=== PATIENT | male | born 1940 | race Caucasian/White ===

== ENCOUNTER 2019-03-06 16:07 | Outpatient (REF) | payer MEDICARE, SELFPAY ==
[2019-03-06 22:06] LABS: Anion Gap 10.1 mmol/L (3-11); BUN 63 mg/dL (7-18); CO2 24.9 mmol/L (21.0-32.0); Chloride 105 mmol/L (98-107); Estimated GFR 32.39 (mL/min/1.73m2); Glucose 139 mg/dL (70-100); Magnesium 2.4 mg/dL (1.8-2.4); Potassium 4.3 mmol/L (3.5-5.1); Sodium 140 mmol/L (136-145); TSH (W/Ref FT4) 6.12 uIU/mL (0.36-3.74)
[2019-03-06 22:35] LABS: FREE T4 0.73 ng/dL (0.76-1.46)
[2019-03-08 05:18] LABS: Vitamin D 25 Total 77.6 ng/ml (30-100)
== END 2019-03-06 16:27 ==
LOC: NCHCN 16:07
PROVIDERS: Visit Provider Family Medicine
DX: N18.3 Chronic kidney disease, stage 3 (moderate) (principal); R25.2 Cramp and spasm
CPT/HCPCS: 80048; 82306; 83735; 84439; 84443

== ENCOUNTER 2019-06-07 12:40 | Outpatient (REF) | payer MEDICARE, SELFPAY ==
[2019-06-07 21:27] LABS: Anion Gap 8.5 mmol/L (3-11); BUN 61 mg/dL (7-18); CO2 26.5 mmol/L (21.0-32.0); CREATININE 1.81 mg/dL (0.70-1.30); Calcium 9.1 mg/dL (8.5-10.1); Chloride 104 mmol/L (98-107); Estimated GFR 36.35 (mL/min/1.73m2); Glucose 119 mg/dL (74-106); Potassium 4.7 mmol/L (3.5-5.1); Sodium 139 mmol/L (136-145); TSH (W/Ref FT4) 7.96 uIU/mL (0.36-3.74)
[2019-06-07 21:38] LABS: COMMENT (LAB VIEW ONLY) 37.26 mg/dL; Microalb ug/mg Crea 48.3 ug/mg Cr
[2019-06-07 22:02] LABS: FREE T4 0.82 ng/dL (0.76-1.46)
== END 2019-06-07 13:00 ==
LOC: NCHCN 12:40
PROVIDERS: Visit Provider Family Medicine
DX: E03.9 Hypothyroidism, unspecified (principal); N18.3 Chronic kidney disease, stage 3 (moderate)
CPT/HCPCS: 80048; 82043; 82570; 84439; 84443

== ENCOUNTER 2019-09-06 19:50 | Outpatient (REF) | payer MEDICARE, SELFPAY ==
[2019-09-06 20:23] LABS: Hemoglobin A1C 7.3 % (3.8-5.6)
[2019-09-06 20:24] LABS: BUN 51 mg/dL (7-18); CREATININE 2.05 mg/dL (0.70-1.30); Calcium 9.1 mg/dL (8.5-10.1); Chloride 103 mmol/L (98-107); Estimated GFR 31.48 (mL/min/1.73m2); Glucose 198 mg/dL (74-106); Potassium 4.9 mmol/L (3.5-5.1); Sodium 135 mmol/L (136-145); TSH 6.73 uIU/mL (0.36-3.74)
== END 2019-09-06 20:10 ==
LOC: NCHCN 19:50
PROVIDERS: PCP Family Medicine; Visit Provider Family Medicine
DX: E11.9 Type 2 diabetes mellitus without complications (principal); N18.3 Chronic kidney disease, stage 3 (moderate)
CPT/HCPCS: 80048; 83036; 84443

== ENCOUNTER 2020-03-11 13:51 | Outpatient (REF) | payer MEDICARE, SELFPAY ==
[2020-03-11 21:14] LABS: Anion Gap 7.3 mmol/L (3-11); BUN 52 mg/dL (7-18); CO2 26.7 mmol/L (21.0-32.0); CREATININE 1.88 mg/dL (0.70-1.30); Chloride 103 mmol/L (98-107); Glucose 228 mg/dL (74-106); Potassium 4.8 mmol/L (3.5-5.1); Sodium 137 mmol/L (136-145); TSH (W/Ref FT4) 7.53 uIU/mL (0.36-3.74)
[2020-03-11 21:31] LABS: FREE T4 0.85 ng/dL (0.76-1.46)
== END 2020-03-11 14:11 ==
LOC: NCHCN 13:51
PROVIDERS: PCP Family Medicine; Visit Provider Family Medicine
DX: E03.9 Hypothyroidism, unspecified (principal); N18.30 Chronic kidney disease, stage 3 unspecified
CPT/HCPCS: 80048; 84439; 84443

== ENCOUNTER 2020-09-25 11:38 | Outpatient (REF) | payer MEDICARE, SELFPAY ==
[2020-09-25 14:39] LABS: Microalb ug/mg Crea 96.5 ug/mg Cr
== END 2020-09-25 11:39 | disposition home or self-care (01) ==
LOC: NCHCN 11:38
PROVIDERS: PCP Family Medicine; Visit Provider Family Medicine
DX: E11.9 Type 2 diabetes mellitus without complications (principal)
CPT/HCPCS: 82043; 82570

== ENCOUNTER 2021-12-01 21:00 | Outpatient (REF) | payer MEDICARE, OTHER, SELFPAY ==
[2021-12-01 16:03] LABS: BUN 46 mg/dL (7-18); CREATININE 1.9 mg/dL (0.70-1.30); Calcium 8.9 mg/dL (8.5-10.1); Chloride 101 mmol/L (98-107); Estimated GFR 34.19 (mL/min/1.73m2); Glucose 210 mg/dL (74-106); Potassium 4.6 mmol/L (3.5-5.1); Sodium 136 mmol/L (136-145)
== END 2021-12-01 21:01 | disposition home or self-care (01) ==
LOC: NCHCN 21:00
PROVIDERS: PCP Family Medicine; Visit Provider Family Medicine
DX: E11.9 Type 2 diabetes mellitus without complications (principal); N18.9 Chronic kidney disease, unspecified
CPT/HCPCS: 80048

== ENCOUNTER 2022-03-02 18:07 | Outpatient (REF) | payer MEDICARE, OTHER, SELFPAY ==
[2022-03-02 16:43] LABS: COMMENT (LAB VIEW ONLY) 53.51 mg/dL; Microalb ug/mg Crea 55.9 ug/mg Cr
== END 2022-03-02 18:08 | disposition home or self-care (01) ==
LOC: NCHCN 18:07
PROVIDERS: PCP Family Medicine; Visit Provider Family Medicine
DX: E11.9 Type 2 diabetes mellitus without complications (principal)
CPT/HCPCS: 82043; 82570

== ENCOUNTER 2022-03-26 12:54 | Outpatient (REF) | payer MEDICARE, OTHER, SELFPAY ==
[2022-03-28 01:44] LABS: COVID-19 RT-PCR UVMMC Result Negative (Negative)
== END 2022-03-26 12:55 | disposition home or self-care (01) ==
LOC: NCHCN 12:54
PROVIDERS: PCP Family Medicine; Visit Provider Family Medicine
DX: Z20.822 Contact with and (suspected) exposure to COVID-19 (principal)
CPT/HCPCS: U0003

== ENCOUNTER 2023-01-18 20:40 | Outpatient (REF) | payer MEDICARE, SELFPAY ==
[2023-01-18 16:11] LABS: Abs Immature Grans 0.02 10^3/uL (0.0-0.06); Absolute Basophil Count 0.08 10^3/uL (0.0-0.2); Absolute Eosinophil Count 0.28 10^3/uL (0.0-0.7); Absolute Lymphocyte Count 1.73 10^3/uL (1.2-3.4); Absolute Monocyte Count 0.51 10^3/uL (0.1-0.8); Absolute Neutrophil Count 5.09 10^3/uL (1.2-6.7); Eosinophils % 3.6; HCT 45.2 % (40.0-50.0); HGB 14.8 g/dL (13.5-17.5); Immature Grans % 0.3; Lymphocytes % 22.4; MCH 31.5 pg (27.0-33.0); MCHC 32.7 % (32.0-36.0); MCV 96 fL (80-95); MPV 11.8 fL (8.0-11.0); Monocytes % 6.6; Neutrophils % 66.1; Platelet Count 153 10^3/uL (130-400); RDW 15.9 % (11.8-14.1); RDW-SD 56.8 fL; WBC 7.71 10^3/uL (4.4-10.8)
[2023-01-18 16:57] LABS: Vitamin D 25 Total 69.5 ng/mL (30-100)
[2023-01-18 16:58] LABS: ALT 29 U/L (16-63); AST 25 U/L (15-37); Albumin 3.6 g/dL (3.4-5.0); Alkaline Phosphatase 92 U/L (46-116); Anion Gap 6.8 mmol/L (3-11); BUN 55 mg/dL (7-18); Bilirubin, Total 0.4 mg/dL (0.2-1.0); CO2 26.2 mmol/L (21.0-32.0); CREATININE 1.9 mg/dL (0.70-1.30); Calcium 9.5 mg/dL (8.5-10.1); Chloride 103 mmol/L (98-107); Estimated GFR 34.79 (mL/min/1.73m2); Glucose 184 mg/dL (74-106); Potassium 4.8 mmol/L (3.5-5.1); Sodium 136 mmol/L (136-145); T4 5.9 ug/dL (4.7-13.3); TSH (W/Ref FT4) 7.45 uIU/mL (0.36-3.74); Total Protein 7.6 g/dL (6.4-8.2); Vitamin B12 1194 pg/mL (193-986)
[2023-01-18 17:25] LABS: Folate > 20.0 ng/mL (8.6-20.0)
[2023-01-18 17:43] LABS: FREE T4 0.84 ng/dL (0.76-1.46)
== END 2023-01-18 20:41 | disposition home or self-care (01) ==
LOC: NCHCN 20:40
PROVIDERS: PCP Family Medicine; Visit Provider Family Medicine
DX: I10 Essential (primary) hypertension (principal); E11.9 Type 2 diabetes mellitus without complications; N18.30 Chronic kidney disease, stage 3 unspecified; I50.9 Heart failure, unspecified; R20.2 Paresthesia of skin
CPT/HCPCS: 80053; 82306; 82607; 82746; 84436; 84439; 84443; 85025

== ENCOUNTER 2023-02-03 16:56 | Outpatient (REF) | payer MEDICARE, SELFPAY ==
[2023-02-03 22:00] LABS: COMMENT (LAB VIEW ONLY) 33.96 mg/dL; Microalb ug/mg Crea 74.5 ug/mg Cr
== END 2023-02-03 16:57 | disposition home or self-care (01) ==
LOC: NCHCN 16:56
PROVIDERS: PCP Family Medicine; Visit Provider Family Medicine
DX: E11.9 Type 2 diabetes mellitus without complications (principal)
CPT/HCPCS: 82043; 82570

== ENCOUNTER 2023-03-01 18:25 | Outpatient (REF) | payer MEDICARE, SELFPAY | END 2023-03-01 18:26 | disposition home or self-care (01) | LOC: NCHCN 18:25 | PROVIDERS: PCP Family Medicine; Visit Provider Physician Assistant | DX: L03.115 Cellulitis of right lower limb (principal) | CPT/HCPCS: 87070; 87205 ==

== ENCOUNTER 2023-09-09 14:07 | Outpatient (REF) | payer MEDICARE, SELFPAY ==
[2023-09-09 14:17] LABS: HCT 44.5 % (40.0-50.0); HGB 14.7 g/dL (13.5-17.5); MCH 31.7 pg (27.0-33.0); MCV 96 fL (80-95); MPV 10.8 fL (8.0-11.0); Platelet Count 171 10^3/uL (130-400); RBC 4.63 10^6/uL (4.36-5.78); RDW 15.9 % (11.8-14.1); RDW-SD 56.4 fL; WBC 7.74 10^3/uL (4.4-10.8)
[2023-09-09 14:31] LABS: Hemoglobin A1C 7.3 % (<5.7)
[2023-09-09 14:41] LABS: ALT 31 U/L (16-63); AST 28 U/L (15-37); Albumin 3.9 g/dL (3.4-5.0); Alkaline Phosphatase 92 U/L (46-116); Anion Gap 8.8 mmol/L (3-11); BUN 69 mg/dL (7-18); Bilirubin, Total 0.7 mg/dL (0.2-1.0); CO2 27.2 mmol/L (21.0-32.0); CREATININE 2.5 mg/dL (0.70-1.30); Calcium 9.3 mg/dL (8.5-10.1); Chloride 102 mmol/L (98-107); Estimated GFR 24.87 (mL/min/1.73m2); Glucose 162 mg/dL (74-106); Potassium 4.5 mmol/L (3.5-5.1); Sodium 138 mmol/L (136-145); Total Protein 7.6 g/dL (6.4-8.2)
== END 2023-09-09 14:08 | disposition home or self-care (01) ==
LOC: NCHCN 14:07
PROVIDERS: PCP Family Medicine; Visit Provider Registered Nurse
DX: Z86.73 Personal history of transient ischemic attack (TIA), and cerebral infarction without residual deficits (principal)
CPT/HCPCS: 80053; 85027; 83036; 84439; 84443

== ENCOUNTER 2023-09-12 11:08 | Outpatient (REF) | payer MEDICARE, SELFPAY ==
[2023-09-12 21:47] LABS: Anion Gap 11.6 mmol/L (3-11); BUN 63 mg/dL (7-18); CO2 23.4 mmol/L (21.0-32.0); CREATININE 2.2 mg/dL (0.70-1.30); Calcium 9.8 mg/dL (8.5-10.1); Chloride 105 mmol/L (98-107); Estimated GFR 28.99 (mL/min/1.73m2); Glucose 205 mg/dL (74-106); Potassium 4.5 mmol/L (3.5-5.1); Sodium 140 mmol/L (136-145)
== END 2023-09-12 11:09 | disposition home or self-care (01) ==
LOC: NCHCN 11:08
PROVIDERS: PCP Family Medicine; Visit Provider Registered Nurse
DX: N18.30 Chronic kidney disease, stage 3 unspecified (principal)
CPT/HCPCS: 80048

== ENCOUNTER 2023-09-20 10:45 | Outpatient (REF) | payer MEDICARE, SELFPAY ==
[2023-09-20 14:22] LABS: Anion Gap 4.6 mmol/L (3-11); BUN 36 mg/dL (7-18); CO2 28.4 mmol/L (21.0-32.0); Chloride 106 mmol/L (98-107); Estimated GFR 32.51 (mL/min/1.73m2); Glucose 145 mg/dL (74-106); NT-proBNP 1034 pg/mL (<300); Potassium 4.9 mmol/L (3.5-5.1); Sodium 139 mmol/L (136-145)
== END 2023-09-20 10:46 | disposition home or self-care (01) ==
LOC: NCHCN 10:45
PROVIDERS: PCP Family Medicine; Visit Provider Family Medicine
DX: I50.9 Heart failure, unspecified (principal); N18.30 Chronic kidney disease, stage 3 unspecified
CPT/HCPCS: 80048; 83880

== ENCOUNTER 2023-11-01 14:14 | Outpatient (REF) | payer MEDICARE, SELFPAY ==
[2023-11-01 21:39] LABS: Anion Gap 7.7 mmol/L (3-11); BUN 46 mg/dL (7-18); CO2 26.3 mmol/L (21.0-32.0); Calcium 9.2 mg/dL (8.5-10.1); Chloride 105 mmol/L (98-107); Estimated GFR 32.51 (mL/min/1.73m2); Glucose 159 mg/dL (74-106); Potassium 4.7 mmol/L (3.5-5.1); Sodium 139 mmol/L (136-145)
== END 2023-11-01 14:15 | disposition home or self-care (01) ==
LOC: NCHCN 14:14
PROVIDERS: PCP Family Medicine; Visit Provider Family Medicine
DX: N18.30 Chronic kidney disease, stage 3 unspecified (principal)
CPT/HCPCS: 80048

== ENCOUNTER 2024-01-03 20:51 | Outpatient (REF) | payer MEDICARE, SELFPAY ==
[2024-01-03 21:46] LABS: Anion Gap 6.8 mmol/L (3-11); BUN 42 mg/dL (7-18); CO2 27.2 mmol/L (21.0-32.0); Calcium 9.4 mg/dL (8.5-10.1); Chloride 102 mmol/L (98-107); Estimated GFR 32.51 (mL/min/1.73m2); Glucose 220 mg/dL (74-106); Potassium 4.6 mmol/L (3.5-5.1); Sodium 136 mmol/L (136-145); TSH (W/Ref FT4) 7.76 uIU/mL (0.36-3.74)
[2024-01-03 21:48] LABS: Hemoglobin A1C 7.3 % (<5.7)
[2024-01-03 22:10] LABS: FREE T4 0.82 ng/dL (0.76-1.46)
== END 2024-01-03 20:52 | disposition home or self-care (01) ==
LOC: NCHCN 20:51
PROVIDERS: PCP Family Medicine; Visit Provider Family Medicine
DX: E03.9 Hypothyroidism, unspecified (principal); E13.42 Other specified diabetes mellitus with diabetic polyneuropathy; N18.30 Chronic kidney disease, stage 3 unspecified
CPT/HCPCS: 80048; 83036; 84439; 84443

== ENCOUNTER 2024-04-05 16:37 | Outpatient (REF) | payer MEDICARE, SELFPAY ==
[2024-04-05 21:52] LABS: Hemoglobin A1C 7.1 % (<5.7)
[2024-04-05 22:01] LABS: Anion Gap 8.8 mmol/L (3-11); BUN 54 mg/dL (7-18); CO2 26.2 mmol/L (21.0-32.0); CREATININE 2.4 mg/dL (0.70-1.30); Chloride 105 mmol/L (98-107); Estimated GFR 25.96 (mL/min/1.73m2); Glucose 138 mg/dL (74-106); NT-proBNP 2239 pg/mL (<300); Potassium 4.7 mmol/L (3.5-5.1); Sodium 140 mmol/L (136-145); TSH (W/Ref FT4) 8.46 uIU/mL (0.36-3.74)
[2024-04-05 22:17] LABS: COMMENT (LAB VIEW ONLY) 57.16 mg/dL; Microalb ug/mg Crea 37.6 ug/mg Cr
[2024-04-05 22:18] LABS: FREE T4 0.88 ng/dL (0.76-1.46)
== END 2024-04-05 16:38 | disposition home or self-care (01) ==
LOC: NCHCN 16:37
PROVIDERS: PCP Family Medicine; Visit Provider Family Medicine
DX: E11.9 Type 2 diabetes mellitus without complications (principal); I10 Essential (primary) hypertension; I50.9 Heart failure, unspecified
CPT/HCPCS: 80048; 82043; 82570; 83036; 83880; 84439; 84443

== ENCOUNTER 2024-07-16 15:46 | Outpatient (REF) | payer MEDICARE, SELFPAY ==
[2024-07-16 22:39] LABS: Anion Gap 6.3 mmol/L (3-11); BUN 71 mg/dL (7-18); CO2 28.7 mmol/L (21.0-32.0); CREATININE 2.5 mg/dL (0.70-1.30); Calcium 9.3 mg/dL (8.5-10.1); Chloride 102 mmol/L (98-107); Estimated GFR 24.72 (mL/min/1.73m2); Glucose 138 mg/dL (74-106); NT-proBNP 1106 pg/mL (<300); Potassium 5.1 mmol/L (3.5-5.1); Sodium 137 mmol/L (136-145); TSH (W/Ref FT4) 9.36 uIU/mL (0.36-3.74)
[2024-07-17 18:21] LABS: T4, Free 1.2 ng/dL (0.8-2.2)
== END 2024-07-16 15:47 | disposition home or self-care (01) ==
LOC: NCHCN 15:46
PROVIDERS: PCP Family Medicine; Visit Provider Family Medicine
DX: E03.9 Hypothyroidism, unspecified (principal); I50.9 Heart failure, unspecified
CPT/HCPCS: 80048; 83880; 84439; 84443

== ENCOUNTER 2024-09-06 15:03 | Outpatient (REF) | payer MEDICARE, SELFPAY ==
[2024-09-06 16:08] LABS: Abs Immature Grans 0.02 10^3/uL (0.0-0.06); Absolute Eosinophil Count 0.31 10^3/uL (0.0-0.7); Absolute Lymphocyte Count 2.17 10^3/uL (1.2-3.4); Absolute Monocyte Count 0.61 10^3/uL (0.1-0.8); Absolute Neutrophil Count 4.63 10^3/uL (1.2-6.7); Basophils % 1.3 %; HCT 38.3 % (40.0-50.0); HGB 12.6 g/dL (13.5-17.5); Immature Grans % 0.3 %; Lymphocytes % 27.7 %; MCH 32.1 pg (27.0-33.0); MCHC 32.9 % (32.0-36.0); MCV 98 fL (80-95); MPV 11.7 fL (8.0-11.0); Monocytes % 7.8 %; Neutrophils % 58.9 %; Platelet Count 178 10^3/uL (130-400); RBC 3.93 10^6/uL (4.36-5.78); RDW 14.8 % (11.8-14.1); RDW-SD 53.5 fL; WBC 7.84 10^3/uL (4.4-10.8)
[2024-09-06 16:48] LABS: Iron 72 ug/dL (65-175); Total Iron Binding Capacity 276 ug/dL (250-450); Transferrin Sat 26 % (20-55)
[2024-09-06 16:52] LABS: ALT 25 U/L (16-63); AST 23 U/L (15-37); Albumin 3.7 g/dL (3.4-5.0); Alkaline Phosphatase 95 U/L (46-116); Anion Gap 5.7 mmol/L (3-11); BUN 69 mg/dL (7-18); Bilirubin, Total 0.6 mg/dL (0.2-1.0); CO2 29.3 mmol/L (21.0-32.0); CREATININE 2.5 mg/dL (0.70-1.30); Calcium 9.5 mg/dL (8.5-10.1); Chloride 102 mmol/L (98-107); Estimated GFR 24.72 (mL/min/1.73m2); Ferritin 145 ng/mL (26-388); Glucose 168 mg/dL (74-106); Potassium 4.6 mmol/L (3.5-5.1); Sodium 137 mmol/L (136-145); TSH (W/Ref FT4) 8.53 uIU/mL (0.36-3.74); Total Protein 7.3 g/dL (6.4-8.2)
[2024-09-06 17:31] LABS: FREE T4 0.94 ng/dL (0.76-1.46)
== END 2024-09-06 15:04 | disposition home or self-care (01) ==
LOC: NCHCN 15:03
PROVIDERS: PCP Family Medicine; Visit Provider Family Medicine
DX: N18.30 Chronic kidney disease, stage 3 unspecified (principal); E03.9 Hypothyroidism, unspecified; I95.89 Other hypotension
CPT/HCPCS: 80053; 82728; 83540; 83550; 84439; 84443; 85025

== ENCOUNTER 2024-11-06 20:39 | Outpatient (REF) | payer MEDICARE, SELFPAY ==
[2024-11-07 01:31] LABS: TSH 8.67 uIU/mL (0.36-3.74)
== END 2024-11-06 20:40 | disposition home or self-care (01) ==
LOC: NCHCN 20:39
PROVIDERS: PCP Family Medicine; Visit Provider Family Medicine
DX: E03.9 Hypothyroidism, unspecified (principal)
CPT/HCPCS: 84443

== ENCOUNTER 2024-11-28 10:55 | Outpatient (REF) | payer MEDICARE, SELFPAY ==
[2024-11-28 15:55] LABS: Hemoglobin A1C 6.8 % (<5.7)
[2024-11-28 15:59] LABS: Anion Gap 6.9 mmol/L (3-11); BUN 48 mg/dL (7-18); CO2 29.1 mmol/L (21.0-32.0); Calcium 9.5 mg/dL (8.5-10.1); Chloride 101 mmol/L (98-107); Estimated GFR 28.81 (mL/min/1.73m2); Glucose 167 mg/dL (74-106); Potassium 4.8 mmol/L (3.5-5.1); Sodium 137 mmol/L (136-145)
== END 2024-11-28 10:56 | disposition home or self-care (01) ==
LOC: NCHCN 10:55
PROVIDERS: PCP Family Medicine; Visit Provider Family Medicine
DX: N18.30 Chronic kidney disease, stage 3 unspecified (principal); E11.69 Type 2 diabetes mellitus with other specified complication
CPT/HCPCS: 80048; 83036

== ENCOUNTER 2025-02-28 12:45 | Outpatient (REF) | payer MEDICARE, SELFPAY ==
[2025-02-28 15:06] LABS: Abs Immature Grans 0.03 10^3/uL (0.0-0.06); HCT 38.6 % (40.0-50.0); HGB 12.8 g/dL (13.5-17.5); Immature Grans % 0.3 %; MCH 32.3 pg (27.0-33.0); MCHC 33.2 % (32.0-36.0); MCV 98 fL (80-95); MPV 11.5 fL (8.0-11.0); Platelet Count 199 10^3/uL (130-400); RBC 3.96 10^6/uL (4.36-5.78); RDW 14.6 % (11.8-14.1); RDW-SD 52.6 fL; WBC 10.27 10^3/uL (4.4-10.8)
[2025-02-28 15:26] LABS: Hemoglobin A1C 7.0 % (<5.7)
[2025-02-28 15:43] LABS: Anion Gap 14.0 mmol/L (3-11); BUN 54 mg/dL (7-18); CO2 23.0 mmol/L (21.0-32.0); Calcium 9.4 mg/dL (8.5-10.1); Chloride 100 mmol/L (98-107); Glucose 174 mg/dL (74-106); Potassium 4.5 mmol/L (3.5-5.1); Sodium 137 mmol/L (136-145); TSH (W/Ref FT4) 1.22 uIU/mL (0.36-3.74)
== END 2025-02-28 12:46 | disposition home or self-care (01) ==
LOC: NCHCN 12:45
PROVIDERS: PCP Family Medicine; Visit Provider Family Medicine
DX: E11.9 Type 2 diabetes mellitus without complications (principal); D64.9 Anemia, unspecified; E03.9 Hypothyroidism, unspecified; N18.30 Chronic kidney disease, stage 3 unspecified
CPT/HCPCS: 80048; 83036; 84443; 85025

== ENCOUNTER 2025-04-03 18:41 | Outpatient (REF) | payer MEDICARE, SELFPAY ==
[2025-04-04 17:38] LABS: Microalb ug/mg Crea 49.8 ug/mg Cr
== END 2025-04-03 18:42 | disposition home or self-care (01) ==
LOC: NCHCN 18:41
PROVIDERS: PCP Family Medicine; Visit Provider Family Medicine
DX: E11.9 Type 2 diabetes mellitus without complications (principal)
CPT/HCPCS: 82043; 82570